=== PATIENT | female | born 1930 | race Caucasian/White ===

== ENCOUNTER → 2016-05-10 | Outpatient (CLI) | payer BC ==
[~2016-05-10] MED LIST: ACET-1311 PO; ACET325T96 PO; ASPI-232 PO; CALC-20 PO; CHOL2000 PO; CITA20TA4 PO; CLB/200 PO; CLX20 PO; CZR25 PO; DULO-24 PO; LDDP5 TD; LPR25 PO; LPT/20 PO; METO25TA56 PO; MIRT30TA2 PO; PSYL55.43 PO; PSYLCAP5 PO; VTMD1000 PO
[2016-05-10 16:31] LABS: BASO % 0.3 %; BASO ABS # 0.02 K/uL (0-0.2); COMPLETE YES; EOS % 2.8 %; HEMATOCRIT 36.6 % (37-47); IG% 0.1 %; LYMPH % 29.4 %; MEAN CELL VOLUME 93.1 fL (80-100); MEAN CORPUSCULAR HEMOGLOBIN 31.6 pg (25-34); MEAN CORPUSCULAR HGB CONC 33.9 g/dl (32-36); MEAN PLATELET VOLUME 9.2 fL (7.4-10.4); MONO % 9.1 %; NEUT % 58.3 %; PLATELET COUNT 243 K/uL (130-400); RED BLOOD COUNT 3.93 M/uL (4.2-5.4)
[2016-05-10 17:28] LABS: ALT/SGPT 22 U/L (12-78); AST/SGOT 22 U/L (15-37); BLOOD UREA NITROGEN 37 mg/dl (7-18); BUN/CREATININE RATIO 20.5 (10-20); CALCIUM 9.8 mg/dl (8.5-10.1); CARBON DIOXIDE 27 mmol/L (21-32); CHLORIDE 103 mmol/L (98-107); GLUCOSE 95 mg/dl (70-99); POTASSIUM 4.4 mmol/L (3.5-5.1); SODIUM 140 mmol/L (136-145)
[2016-05-10 17:39] LABS: ALB/GLOB RATIO 1.2 (0.9-2); ALKALINE PHOSPHATASE 75 U/L (45-117)
== END | disposition home or self-care (01) ==
LOC: C.LAB1850 15:46
PROVIDERS: ATTEND Internal Medicine
DX: N28.9 Disorder of kidney and ureter, unspecified (principal)

== ENCOUNTER 2016-06-25 10:09 | Emergency (ER) | payer BC ==
[~2016-06-25 10:09] MED LIST changes: -ASPI-232 PO; -CHOL2000 PO; -CITA20TA4 PO; -METO25TA56 PO; -MIRT30TA2 PO; -PSYLCAP5 PO
[2016-06-25 10:23] VITALS: TEMP 36.7
[2016-06-25] MEDS ORDERED: CITA20TA4 PO (11:50)
[2016-06-25] MEDS ORDERED: CHOL2000 PO (11:50)
[2016-06-25] MEDS ORDERED: METO25TA56 PO (11:51)
[2016-06-25] MEDS ORDERED: PSYLCAP5 PO (11:52)
[2016-06-25] MEDS ORDERED: MIRT30TA2 PO (11:53)
--- NOTE | 2016-06-25 11:54 | EMERGENCY ROOM VISIT NOTE ---
History Report prepared by Huong: Melvin Nair Under the Supervision of: Dr. bIrahima Torres M.D. First contact with patient: 11:29 Chief Complaint: CONFUSION Stated Complaint: CONFUSION/SLUGGISH MOMENTS Nursing Triage Summary: pt brought in to the ED with [facility] right sided facial droop and confusion no known last known well History of Present Illness The patient is an 86 year old female who presents to the Emergency Room via family from [facility] with complaints of worsening confusion that started this morning. Additional symptoms include reported right sided facial droop. Per the patient's son, he got a call around 0920 this morning stating that the patient was walking around yesterday but today she was not getting out of bed. He adds that the patient seemed to be mildly confused when he first had contact with the patient today, but the patient appears much more confused at this time. He does also mention that she appeared mildly confused when he last talked to her, 4 days ago. He does states it is not abnormal for the patient to have sporadic episodes of confusion. The patient has a history of a TIA. Per family, the symptoms during this TIA where not as severe as those that she is experiencing today. The patient denies a headache or any additional associated symptoms. Last known well time is unknown. HPI limited d/t: AMS. Source of History: patient, family History Limited By: AMS Onset: This morning Position: other (Neurological system ) Timing: other (Persistent ) Modifying Factors (Relieving): other (None) Associated Symptoms: No headache Review of Systems All systems have been listed, reviewed, and are negative other than those previously mentioned. Please see Additional Medical History Sheet. Past Medical & Surgical Medical Problems: (1) Abdominal hernia (2) Advance care planning (3) Anemia (4) Anxiety (5) Atrial fibrillation (6) Crohns disease (7) Diverticulosis Colon (W/O Ment Of Hemorrhage) (8) Hearing loss (9) Heart murmur (10) Hyperlipemia (11) Osteoporosis Nos (12) PVC (premature ventricular contraction) (13) Right shoulder injury (14) Traumatic compression fracture of T11 thoracic vertebra (15) Traumatic compression fracture of T3 thoracic vertebra Family History Stroke Social History Smoking Status: Former Smoker Alcohol Use: none Drug Use: none Marital Status: Housing Status: assisted living Occupation Status: retired Current/Historical Medications Scheduled Acetaminophen Tab (Tylenol), 650 MG PO BID Aspirin (Aspir-81), 1 TAB PO DAILY Atorvastatin (Atorvastatin Calcium), 20 MG PO QPM Calcium Carbonate-Vitamin D (Calcium 600 + D), 1 TAB PO BID Celecoxib (CeleBREX), 200 MG PO DAILY Cholecalciferol (Vitamin D3), 2 CAP PO DAILY Citalopram Hydrobromide (Citalopram Hydrobromide), 1 TAB PO DAILY Metoprolol Tartrate (Lopressor) (Lopressor), 25 MG PO QPM Mirtazapine Soltab (Remeron Soltab), 30 MG PO HS Psyllium W/ Calcium (Metamucil Plus Calcium), 2 CAP PO QPM Scheduled PRN Acetaminophen (Tylenol), 650 MG PO Q4 PRN for MILD PAIN Allergies Coded Allergies: Lorazepam (Verified Allergy, Unknown, UNKN, 06/25/16) Penicillins (Verified Allergy, Unknown, 06/25/16) Sulfa Antibiotics (Verified Allergy, Unknown, UNKNOWN, 06/25/16) Physical Exam Vital Signs Date Time Temp Pulse Resp B/P Pulse Ox O2 Delivery O2 Flow Rate FiO2 06/25/16 16:39 72 18 169/97 92 Room Air 06/25/16 15:24 71 18 169/113 93 Room Air 06/25/16 13:42 66 28 185/108 94 06/25/16 13:03 70 06/25/16 11:59 97 26 183/106 94 Room Air 06/25/16 10:42 75 06/25/16 10:23 36.7 92 18 180/111 93 Room Air Physical Exam GENERAL: No distress. Very [place]. Appears confused. Patient is disoriented to time , place, and person. Patient is adequately hydrated and well-nourished. SKIN: No erythema, pallor, cyanosis or rash HEENT: Normal head, pupils equal, reactive to light and accommodation. No facial deformity. Minimal right sided facial droop noted. Oral cavity and posterior pharynx appear normal. Neck: Without adenopathy, no neck vein distention. LUNGS: Clear to auscultation. No wheezes, no rales, no rhonchi. HEART: No murmurs. No gallops. No rubs ABDOMEN: No masses, no rebound, no hepatomegaly or splenomegaly. EXTREMITIES: No signs of trauma. No pedal or pretibial edema. No calf or thigh tenderness. NEUROLOGIC: Minimal right sided facial droop, no other focal findings. Patient is confused and disoriented. NIH Stroke scale completed by nurse- 7. Medical Decision & Procedures ER Provider Diagnostic Interpretation: Radiology results as stated below per my review and radiologist interpretation: CT SCAN OF THE BRAIN WITHOUT IV CONTRAST CLINICAL HISTORY: Change in mental status. COMPARISON STUDY: CT of the brain dated 05/14/2015. TECHNIQUE: Unenhanced axial CT scan of the brain is performed from the vertex to the skull base. The patient was scanned twice due to motion artifact. CT DOSE: 1228.53 mGy.cm FINDINGS: Brain parenchyma: There are age-related involutional changes noting moderate subcortical and periventricular microangiopathic change. There is no hemorrhage, mass effect, or evidence of acute territorial ischemia by CT criteria. Koenig-white matter is preserved. No extra-axial fluid collection is seen. Ventricles, sulci, cisterns: Prominent secondary to involutional change. Intracranial vasculature: There is atherosclerotic calcification of the cavernous carotid and vertebral arteries. Calvarium: Unremarkable. Sinuses and mastoids: There is a small air-fluid level moderate mucosal thickening in the right maxillary antrum. The remaining visualized paranasal sinuses are clear. The mastoid air cells are well pneumatized. Orbits: The bony orbits are grossly intact. There are bilateral ocular lens implants. IMPRESSION: 1. There is no hemorrhage, mass effect, or evidence of acute territorial ischemia by CT criteria noting a significantly motion degraded examination. 2. An air-fluid levels noted in the right maxillary antrum. Correlate clinically for evidence of sinusitis. Electronically signed by: Dudley Stanley M.D. 06/25/2016 11:59 AM Dictated Date/Time: 06/25/2016 11:57 AM CHEST ONE VIEW PORTABLE HISTORY: confusion COMPARISON: Chest 05/14/2015. FINDINGS: The heart remains enlarged. There are old right rib fractures. The lungs are clear. No pleural effusions. No pneumothorax. There is a left shoulder prosthesis. Scoliosis, unchanged. IMPRESSION: No significant change compared to the prior study. No acute process. Stable cardiomegaly. Electronically signed by: Pa Toledo M.D. 06/25/2016 12:45 PM Dictated Date/Time: 06/25/2016 12:39 PM Laboratory Results 06/25/16 11:13 Red Blood Count 3.96, Mean Corpuscular Volume 93.7, Mean Corpuscular Hemoglobin 31.3, Mean Corpuscular Hemoglobin Concent 33.4, Mean Platelet Volume 8.9, Neutrophils (%) (Auto) 72.3, Lymphocytes (%) (Auto) 17.7, Monocytes (%) (Auto) 8.0, Eosinophils (%) (Auto) 1.4, Basophils (%) (Auto) 0.3, Neutrophils # (Auto) 5.33, Lymphocytes # (Auto) 1.30, Monocytes # (Auto) 0.59, Eosinophils # (Auto) 0.10, Basophils # (Auto) 0.02 06/25/16 11:13 Test 06/25/16 10:44 06/25/16 11:13 06/25/16 12:05 Bedside Glucose 94 mg/dl (70-90) White Blood Count 7.36 K/uL (4.8-10.8) Red Blood Count 3.96 M/uL (4.2-5.4) Hemoglobin 12.4 g/dL (12.0-16.0) Hematocrit 37.1 % (37-47) Mean Corpuscular Volume 93.7 fL (80-100) Mean Corpuscular Hemoglobin 31.3 pg (25-34) Mean Corpuscular Hemoglobin Concent 33.4 g/dl (32-36) Platelet Count 299 K/uL (130-400) Mean Platelet Volume 8.9 fL (7.4-10.4) Neutrophils (%) (Auto) 72.3 % Lymphocytes (%) (Auto) 17.7 % Monocytes (%) (Auto) 8.0 % Eosinophils (%) (Auto) 1.4 % Basophils (%) (Auto) 0.3 % Neutrophils # (Auto) 5.33 K/uL (1.4-6.5) Lymphocytes # (Auto) 1.30 K/uL (1.2-3.4) Monocytes # (Auto) 0.59 K/uL (0.11-0.59) Eosinophils # (Auto) 0.10 K/uL (0-0.5) Basophils # (Auto) 0.02 K/uL (0-0.2) RDW Standard Deviation 49.4 fL (36.4-46.3) RDW Coefficient of Variation 14.5 % (11.5-14.5) Immature Granulocyte % (Auto) 0.3 % Immature Granulocyte # (Auto) 0.02 K/uL (0.00-0.02) Prothrombin Time 10.0 SECONDS (9.0-12.0) Prothromb Time International Ratio 0.9 (0.9-1.1) Activated Partial Thromboplast Time 23.3 SECONDS (21.0-31.0) Partial Thromboplastin Ratio 0.9 Anion Gap 8.0 mmol/L (3-11) Estimated GFR () 35.7 Estimated GFR (Non- 30.8 BUN/Creatinine Ratio 16.5 (10-20) Calcium Level 10.4 mg/dl (8.5-10.1) Total Bilirubin 0.5 mg/dl (0.2-1) Aspartate Amino Transf (AST/SGOT) 19 U/L (15-37) Alanine Aminotransferase (ALT/SGPT) 20 U/L (12-78) Alkaline Phosphatase 73 U/L (45-117) Total Protein 6.8 gm/dl (6.4-8.2) Albumin 3.8 gm/dl (3.4-5.0) Globulin 3.0 gm/dl (2.5-4.0) Albumin/Globulin Ratio 1.3 (0.9-2) Urine Color YELLOW Urine Appearance TURBID (CLEAR) Urine pH 7.5 (4.5-7.5) Urine Specific [place] 1.016 (1.000-1.030) Urine Protein NEG (NEG) Urine Glucose (UA) NEG (NEG) Urine Ketones NEG (NEG) Urine Occult Blood NEG (NEG) Urine Nitrite NEG (NEG) Urine Bilirubin NEG (NEG) Urine Urobilinogen NEG (NEG) Urine Leukocyte Esterase NEG (NEG) Urine WBC (Auto) 1-5 /hpf (0-5) Urine RBC (Auto) 0-4 /hpf (0-4) Urine Hyaline Casts (Auto) 0 /lpf (0-5) Urine Epithelial Cells (Auto) 0-5 /lpf (0-5) Urine Bacteria (Auto) NEG (NEG) Urine Renal Epithelial Cells /lpf (0-5) Laboratory results as stated above per my review. Medications Administered Medications (Trade) Dose Ordered Sig/Lori Route Start Time Stop Time Status Last Admin Dose Admin Aspirin 162 mg 162 mg NOW STAT PO 06/25/16 14:29 06/25/16 14:32 DC 06/25/16 14:29 162 MG Sodium Chloride (1/2 Nss 1000ml) 1,000 ml @ 125 mls/hr Q8H IV 06/25/16 14:45 06/25/16 17:30 06/25/16 14:45 125 MLS/HR ECG Indication: altered mental status Rate (beats per minute): 67 Rhythm: normal sinus (with PAC) Findings: nonspecific-ST abn ED Course 1130: Past medical records reviewed. The patient was evaluated in room A10. A complete history and physical examination was performed. 1150: The patient's son plans to call [facility] to speak with an aid in order to find last known well time. 1210: After conversation with the patient's aid at [facility], last known well time remains unknown. The patient woke up around 0600 this morning with weakness. She adds that the patient has been experiencing intermittent episodes of confusion for the past 8 days. 1229: I discussed the patient's case with the patient's son and daughter-in- law. I explained why TPA is not indicated due to unknown last known well time. 1242: I discussed the patient's case with Dr. Trujillo ([facility]). He will evaluate the patient for further management and care. 1539: The patient's family does not want aggressive measures performed. The patient will be discharged home, per family request. I discussed discharge instructions with the patient's family. They verbalize understanding and agreement. Medical Decision Nurses notes reviewed. Medical history sheet reviewed. Differential diagnosis includes but is not limited to: TIA, CVA, infection- including urine infection and pneumonia. The patient is here with strokelike symptoms. Last well-known time is unknown. Patient's symptoms seem to be vacillating although she did improve while here. Multiple labs, EKG and imaging were obtained. Please see above. The patient has no evidence of a bleed on CT scan. The patient was felt not to be a candidate for TPA because of the unknown last well-known time. Initially the patient was to be admitted and the hospitalist was consulted. I had a further discussion with the hospitalist and who requested that no aggressive measures be performed. A discussion was also held with the patient. In light of the above the patient will be discharged with no other further workup now. She will be placed on 81 mg of aspirin. The patient will return to [facility]. The family plans on placing the patient in hospice care. project/production manager imaging was involved in starting the process. Consults Time Called: 1240 Consulting Physician: Dr. Trujillo ([facility]) Returned Call: 1242 I discussed the patient's case with Dr. Trujillo ([facility]). He will evaluate the patient for further management and care. Impression Primary Impression: CVA (cerebral vascular accident) Scribe Attestation The scribe's documentation has been prepared under my direction and personally reviewed by me in its entirety. I confirm that the note above accurately reflects all work, treatment, procedures, and medical decision making performed by me. Departure Information Dispostion Home / Self-Care Prescriptions Aspirin (ASPIR-81) 81 Mg Tab 1 TAB PO DAILY for 30 Days, #30 TAB 5 Refills Prov: Ibrahima Torres M.D. 06/25/16 Referrals Wenceslao Hall M.D. (PCP) Forms HOME CARE DOCUMENTATION FORM, IMPORTANT VISIT INFORMATION, WORK / SCHOOL INSTRUCTIONS Patient Instructions My [facility] Additional Instructions Continue all of your current medications as prescribed. Take 81 mg aspirin daily. Stroke History Time Last Known Well [facility] Stroke t-PA Criteria Reviewed Does NOT meet criteria for t-PA Reason t-PA Not Given Treatment not indicated ([facility] last known well time) Extended Window (3-4.5 hour) Age greater than 80
[2016-06-25 11:58] LABS: BASO % 0.3 %; BASO ABS # 0.02 K/uL (0-0.2); COMPLETE YES; EOS % 1.4 %; HEMATOCRIT 37.1 % (37-47); IG% 0.3 %; LYMPH % 17.7 %; MEAN CELL VOLUME 93.7 fL (80-100); MEAN CORPUSCULAR HEMOGLOBIN 31.3 pg (25-34); MEAN CORPUSCULAR HGB CONC 33.4 g/dl (32-36); MEAN PLATELET VOLUME 8.9 fL (7.4-10.4); NEUT % 72.3 %; PLATELET COUNT 299 K/uL (130-400); RED BLOOD COUNT 3.96 M/uL (4.2-5.4); WHITE BLOOD COUNT 7.36 K/uL (4.8-10.8)
--- NOTE | 2016-06-25 12:01 | DIAGNOSTIC IMAGING REPORT ---
CT SCAN OF THE BRAIN WITHOUT IV CONTRAST CLINICAL HISTORY: Change in mental status. COMPARISON STUDY: CT of the brain dated 05/14/2015. TECHNIQUE: Unenhanced axial CT scan of the brain is performed from the vertex to the skull base. The patient was scanned twice due to motion artifact. CT DOSE: 1228.53 mGy.cm FINDINGS: Brain parenchyma: There are age-related involutional changes noting moderate subcortical and periventricular microangiopathic change. There is no hemorrhage, mass effect, or evidence of acute territorial ischemia by CT criteria. Koenig-white matter is preserved. No extra-axial fluid collection is seen. Ventricles, sulci, cisterns: Prominent secondary to involutional change. Intracranial vasculature: There is atherosclerotic calcification of the cavernous carotid and vertebral arteries. Calvarium: Unremarkable. Sinuses and mastoids: There is a small air-fluid level moderate mucosal thickening in the right maxillary antrum. The remaining visualized paranasal sinuses are clear. The mastoid air cells are well pneumatized. Orbits: The bony orbits are grossly intact. There are bilateral ocular lens implants. IMPRESSION: 1. There is no hemorrhage, mass effect, or evidence of acute territorial ischemia by CT criteria noting a significantly motion degraded examination. 2. An air-fluid levels noted in the right maxillary antrum. Correlate clinically for evidence of sinusitis. Electronically signed by: Dudley Stanley M.D. 06/25/2016 11:59 AM Dictated Date/Time: 06/25/2016 11:57 AM
[2016-06-25 12:08] LABS: ALT/SGPT 20 U/L (12-78); BLOOD UREA NITROGEN 25 mg/dl (7-18); BUN/CREATININE RATIO 16.5 (10-20); CALCIUM 10.4 mg/dl (8.5-10.1); CARBON DIOXIDE 29 mmol/L (21-32); CHLORIDE 104 mmol/L (98-107); GLUCOSE 89 mg/dl (70-99); POTASSIUM 4.3 mmol/L (3.5-5.1); SODIUM 141 mmol/L (136-145)
[2016-06-25 12:10] LABS: INR 0.9 (0.9-1.1); PARTIAL THROMBOPLASTIN RATIO 0.9
[2016-06-25 12:11] LABS: ALB/GLOB RATIO 1.3 (0.9-2); ALKALINE PHOSPHATASE 73 U/L (45-117); AST/SGOT 19 U/L (15-37)
[2016-06-25 12:21] LABS: URINE APPEARANCE TURBID (CLEAR); URINE BILIRUBIN NEG (NEG); URINE COLOR YELLOW; URINE NITRITE NEG (NEG); URINE PH 7.5 (4.5-7.5); URINE SPECIFIC GRAVITY 1.016 (1.000-1.030); UROBILINOGEN NEG (NEG); ZZURINE CULT IF INDIC CATH NO
[2016-06-25 12:23] LABS: MANUAL MICROSCOPIC REQUIRED? NO; REVIEW REQ? YES
[2016-06-25 12:37] LABS: URINE EPITHELIAL CELL AUTO 0-5 /lpf (0-5)
--- NOTE | 2016-06-25 12:46 | DIAGNOSTIC IMAGING REPORT ---
CHEST ONE VIEW PORTABLE HISTORY: confusion COMPARISON: Chest 05/14/2015. FINDINGS: The heart remains enlarged. There are old right rib fractures. The lungs are clear. No pleural effusions. No pneumothorax. There is a left shoulder prosthesis. Scoliosis, unchanged. IMPRESSION: No significant change compared to the prior study. No acute process. Stable cardiomegaly. Electronically signed by: Pa Toledo M.D. 06/25/2016 12:45 PM Dictated Date/Time: 06/25/2016 12:39 PM
[2016-06-25] MEDS ORDERED: ASPIRIN 81 MG ECTAB PO STA (14:29)
--- NOTE | 2016-06-25 14:38 | Medical Consult ---
Consultation Date of Consultation: Jun 25, 2016. Attending Physician: Reason for Consultation: TIA History of Present Illness The patient is a 86 y.o with a history of dementia, tia, and critical . She has been experiencing increasing confusion over the past 8 days. This morning she had a facial drop and difficulty ambulating. I was asked to evaluate for admission. The patient when I evaluated was alert and oriented to name. She did not know why she was here in the hospital and was upset to learn that the plan was to admit her to the hospital. She is an unreliable historian secondary to her dementia. Past Medical/Surgical History Medical Problems: 1. Critical 2. Atrial fibrilliation 3. Crohns disease 4. hyperlipidemia 5. Dementia Family History Stroke Social History Smoking Status: Former Smoker Drug Use: none Marital Status: Housing Status: assisted living Occupation Status: retired Allergies Coded Allergies: Lorazepam (Verified Allergy, Unknown, UNKN, 06/25/16) Penicillins (Verified Allergy, Unknown, 06/25/16) Sulfa Antibiotics (Verified Allergy, Unknown, UNKNOWN, 06/25/16) Home Medications reviewed does not include aspirin or other blood thinner secondary to fall risk Current Inpatient Medications reviewed on er sheet. Review of Systems unreliable secondary to her dementia Physical Exam Date Time Temp Pulse Resp B/P Pulse Ox O2 Delivery O2 Flow Rate FiO2 06/25/16 13:42 66 28 185/108 94 06/25/16 13:03 70 06/25/16 11:59 97 26 183/106 94 Room Air 06/25/16 10:42 75 06/25/16 10:23 36.7 92 18 180/111 93 Room Air General Appearance: no apparent distress Head: normocephalic Eyes: normal inspection Neck: trachea midline Respiratory/Chest: lungs clear Cardiovascular: regular rate, rhythm Abdomen/GI: normal bowel sounds, non tender, soft Extremities/Musculoskelatal: normal inspection Neurologic/Psych: + facial droop (right) Skin: normal color Laboratory Results Last 24 Hours Test 06/25/16 10:44 06/25/16 11:13 06/25/16 12:05 Bedside Glucose 94 mg/dl White Blood Count 7.36 K/uL Red Blood Count 3.96 M/uL Hemoglobin 12.4 g/dL Hematocrit 37.1 % Mean Corpuscular Volume 93.7 fL Mean Corpuscular Hemoglobin 31.3 pg Mean Corpuscular Hemoglobin Concent 33.4 g/dl Platelet Count 299 K/uL Mean Platelet Volume 8.9 fL Neutrophils (%) (Auto) 72.3 % Lymphocytes (%) (Auto) 17.7 % Monocytes (%) (Auto) 8.0 % Eosinophils (%) (Auto) 1.4 % Basophils (%) (Auto) 0.3 % Neutrophils # (Auto) 5.33 K/uL Lymphocytes # (Auto) 1.30 K/uL Monocytes # (Auto) 0.59 K/uL Eosinophils # (Auto) 0.10 K/uL Basophils # (Auto) 0.02 K/uL RDW Standard Deviation 49.4 fL RDW Coefficient of Variation 14.5 % Immature Granulocyte % (Auto) 0.3 % Immature Granulocyte # (Auto) 0.02 K/uL Prothrombin Time 10.0 SECONDS Prothromb Time International Ratio 0.9 Activated Partial Thromboplast Time 23.3 SECONDS Partial Thromboplastin Ratio 0.9 Sodium Level 141 mmol/L Potassium Level 4.3 mmol/L Chloride Level 104 mmol/L Carbon Dioxide Level 29 mmol/L Anion Gap 8.0 mmol/L Blood Urea Nitrogen 25 mg/dl Creatinine 1.50 mg/dl Estimated GFR () 35.7 Estimated GFR (Non- 30.8 BUN/Creatinine Ratio 16.5 Random Glucose 89 mg/dl Calcium Level 10.4 mg/dl Total Bilirubin 0.5 mg/dl Aspartate Amino Transf (AST/SGOT) 19 U/L Alanine Aminotransferase (ALT/SGPT) 20 U/L Alkaline Phosphatase 73 U/L Total Protein 6.8 gm/dl Albumin 3.8 gm/dl Globulin 3.0 gm/dl Albumin/Globulin Ratio 1.3 Urine Color YELLOW Urine Appearance TURBID Urine pH 7.5 Urine Specific [place] 1.016 Urine Protein NEG Urine Glucose (UA) NEG Urine Ketones NEG Urine Occult Blood NEG Urine Nitrite NEG Urine Bilirubin NEG Urine Urobilinogen NEG Urine Leukocyte Esterase NEG Urine WBC (Auto) 1-5 /hpf Urine RBC (Auto) 0-4 /hpf Urine Hyaline Casts (Auto) 0 /lpf Urine Epithelial Cells (Auto) 0-5 /lpf Urine Bacteria (Auto) NEG Urine Renal Epithelial Cells /lpf Assessment & Plan (1) TIA (transient ischemic attack) Status: Acute Assessment & Plan: Case discussed in detail with the patient's son. The patient is not interested in being in the hospital and a work up could result in at most antiplatlet therapy since she is not a candidate for anything stronger for the afib risk secondary to risk of fall. The patient is also aware that is towards the end of her life, and lost her 5 years prior. She declined surgical intervention for critical . Based upon the son's awareness of her preferences and the limitations of medical tx at her age.....the plan is to return her to her assisted living with 24 hour care added , and hospice services. Based upon her increased confusion, dementia, critical , and in the context of a new tia/CVA her life expectancy is less than 6 months in my medical opinion. In additions she does not want any heroic interventions. Case discussed with Dr. Torres and the patient's son and we all agree, this would be the best treatment plan that honors the patient's wishes. Time spent in review of the chart and discussion with the patient's son, case management, patient's nurse and ed physician Dr. Torres 70 minutes. Thank you for opportunity to care for this patient and her family. (2) Atrial fibrillation with RVR Status: Acute (3) Diverticulosis Colon (W/O Ment Of Hemorrhage) (4) Advance care planning Assessment & Plan: Patient does not want any heroics code DNR.
[2016-06-25] MEDS ORDERED: SODIUM CHLORIDE 0.45% 1000ML 1,000 ML IV SCH (14:45)
[2016-06-25] MEDS ORDERED: ASPI-232 PO (15:00)
[2016-06-25 16:39] VITALS: BP 169/97; PULSE 72; O2SAT 92
== END 2016-06-25 17:22 | disposition home or self-care (01) ==
LOC: ENRESERVTM → ENRESERVDT → CANRESERV → C.EDB 10:10 → CANBEDREQ 15:13 → C.EDA 17:22
DX: G45.9 Transient cerebral ischemic attack, unspecified (principal); K46.9 Unspecified abdominal hernia without obstruction or gangrene; D64.9 Anemia, unspecified; F41.9 Anxiety disorder, unspecified; I48.91 Unspecified atrial fibrillation; K50.90 Crohn's disease, unspecified, without complications; K57.30 Diverticulosis of large intestine without perforation or abscess without bleeding; R01.1 Cardiac murmur, unspecified; E78.5 Hyperlipidemia, unspecified; M81.0 Age-related osteoporosis without current pathological fracture; I49.3 Ventricular premature depolarization; I51.7 Cardiomegaly; Z86.73 Personal history of transient ischemic attack (TIA), and cerebral infarction without residual deficits; Z87.891 Personal history of nicotine dependence; Z79.82 Long term (current) use of aspirin; Z82.3 Family history of stroke

== ENCOUNTER → 2016-07-26 | Outpatient (CLI) | payer OTHER, BC ==
[~2016-07-26] MED LIST changes: +ASPI-232 PO; +CHOL2000 PO; +CITA20TA4 PO; -CLX20 PO; -CZR25 PO; -DULO-24 PO; -LDDP5 TD; -LPR25 PO; +METO25TA56 PO; +MIRT30TA2 PO; -PSYL55.43 PO; +PSYLCAP5 PO; -VTMD1000 PO
[2016-07-26 16:41] LABS: BASO % 0.4 %; BASO ABS # 0.02 K/uL (0-0.2); COMPLETE YES; EOS % 3.6 %; HEMATOCRIT 34.8 % (37-47); IG% 0.2 %; LYMPH % 28.7 %; MEAN CELL VOLUME 93.8 fL (80-100); MEAN CORPUSCULAR HEMOGLOBIN 31.3 pg (25-34); MEAN CORPUSCULAR HGB CONC 33.3 g/dl (32-36); MEAN PLATELET VOLUME 9.2 fL (7.4-10.4); MONO % 9.5 %; NEUT % 57.6 %; PLATELET COUNT 278 K/uL (130-400); RED BLOOD COUNT 3.71 M/uL (4.2-5.4); WHITE BLOOD COUNT 5.58 K/uL (4.8-10.8)
[2016-07-26 17:23] LABS: BLOOD UREA NITROGEN 24 mg/dl (7-18); BUN/CREATININE RATIO 18.7 (10-20); CALCIUM 9.4 mg/dl (8.5-10.1); CARBON DIOXIDE 30 mmol/L (21-32); CHLORIDE 105 mmol/L (98-107); GLUCOSE 93 mg/dl (70-99); MAGNESIUM 2.1 mg/dl (1.8-2.4); POTASSIUM 4.1 mmol/L (3.5-5.1); SODIUM 139 mmol/L (136-145)
== END | disposition home or self-care (01) ==
LOC: C.LAB1850 15:38
PROVIDERS: ATTEND Internal Medicine Nephrology
DX: N18.3 Chronic kidney disease, stage 3 (moderate) (principal); E55.9 Vitamin D deficiency, unspecified